=== PATIENT | female | born 1970 | race Two or more races ===

== ENCOUNTER 2025-08-12 17:53 | Emergency (ER) | payer OTHER ==
[~2025-08-12] VITALS: Ht 172.7 cm; Wt 88.5 kg
[2025-08-12] MEDS ORDERED: PEPCID AC20 MG (18:01)
[2025-08-12] MEDS ORDERED: ONDANSETRON HCL 2 MG/ML VIAL IV ONE (18:30)
[2025-08-12] MEDS ORDERED: FAMOtidine 10 MG/ML (4ML VIAL) IV ONE (18:30)
[2025-08-12] MEDS ORDERED: 0.9 % SODIUM CHLORIDE 1,000 ML IV ONE (18:30)
[2025-08-12] MEDS ORDERED: ONDANSETRON HCL 2 MG/ML VIAL ONE (19:17)
[2025-08-12] MEDS ORDERED: FAMOTIDINE/PF 20 MG/2 ML VIAL ONE (19:17)
[2025-08-12 19:38] LABS: BASO % 0.2 % (0.1-1.2); EOS # 0.38 (0.04-0.54); EOS % 3.1 % (0.7-7.0); LYMPH # 0.89 (1.18-3.74); LYMPH % 7.3 % (19.3-53.1); MEAN PLATELET VOLUME 9.10 fl (9.4-12.4); MONO # 0.64 (0.24-0.82); MONO % 5.3 % (4.7-12.5); NEUT # 10.20 (1.56-6.13); NEUT % 83.8 % (34.0-71.1); RED CELL DISTRIBUTION WIDTH 13.7 % (11.6-14.4)
[2025-08-12 20:04] LABS: ALT/SGPT 24.0 U/L (12-78); AST/SGOT 14.0 U/L (15-37); BILIRUBIN TOTAL 0.47 mg/dL (0.3-1.2); BUN CREA RATIO 25.0 (7.0-25.0); CREATININE SERUM 0.76 mg/dL (0.55-1.02); GFR 79.91; GLOBULINA 4.1 G/DL (2.4-3.5); GLUCOSE FASTING 105.0 mg/dL (65-100); OSMOLALITY SERUM 284.0 MOSM/KG (275-295)
[2025-08-12] MEDS ORDERED: PEPCID AC20 MG PO (22:51)
[2025-08-12] MEDS ORDERED: ZOFRAN8 MG PO (22:51)
== END 2025-08-12 23:00 | disposition home or self-care (01) ==
LOC: ER 17:53
PROVIDERS: Preventive Medicine Public Health & General Preventive Medicine
DX: K52.89 Other specified noninfective gastroenteritis and colitis (principal)